=== PATIENT | female | born 1970 ===

== ENCOUNTER 2018-07-09 09:57 | Emergency (ER) | payer OTHER ==
[2018-07-09 10:05] VITALS: O2SAT 98
--- NOTE | 2018-07-09 10:39 | C.PDOC ---
History Of Present Illness 48 Y/O FEMALE PRESENTS TO ED WITH C/O LEFT FLANK PAIN ASSOCIATED WITH DYSURIA AND URINARY FREQUENCY FOR 4 DAYS. PATIENT ADMITS TO SUBJECTIVE FEVER AND CHILLS. PATIENT DENIES HO KIDNEY STONES. NO OTHER PHYSICAL COMPLAINTS AT THIS TIME. EXAM MILD DIST NONTOXIC ABD NEG +L CVAT MILD BACK AROM WO DIFF REMAINDER NEG Time Seen by Provider: 07/09/18 10:20 Chief Complaint (Nursing): Abdominal Pain History Per: Patient History/Exam Limitations: no limitations Onset/Duration Of Symptoms: Days Current Symptoms Are (Timing): Still Present Associated Symptoms: Fever, Chills, Urinary Symptoms Past Medical History Reviewed: Historical Data, Nursing Documentation, Vital Signs Vital Signs: Last Vital Signs Temp 99.3 F 07/09/18 10:01 Pulse 106 H 07/09/18 10:01 Resp 19 07/09/18 10:01 BP 118/70 07/09/18 10:01 Pulse Ox 98 07/09/18 10:01 - Medical History PMH: Hypercholesterolemia Surgical History: No Surg Hx Family History: States: No Known Family Hx - Social History Hx Alcohol Use: No Hx Substance Use: No - Immunization History Hx Tetanus Toxoid Vaccination: No Hx Influenza Vaccination: No Hx Pneumococcal Vaccination: No Review Of Systems Constitutional: Positive for: Fever, Chills Gastrointestinal: Positive for: Other (Flank pain). Negative for: Nausea, Vomiting Genitourinary: Positive for: Dysuria, Frequency. Negative for: Vaginal Discharge, Vaginal Bleeding Skin: Negative for: Rash Physical Exam - Physical Exam Appears: Non-toxic, Other (In mild distress) Skin: Warm, Dry, No Rash Head: Atraumatic, Normacephalic Eye(s): bilateral: Normal Inspection Oral Mucosa: Moist Throat: Normal, No Erythema, No Exudate Neck: Normal ROM, Supple Cardiovascular: Rhythm Regular Respiratory: Normal Breath Sounds, No Rales, No Rhonchi, No Wheezing Gastrointestinal/Abdominal: Soft, No Tenderness, No Guarding, No Rebound Back: CVA Tenderness (mild left), No Decreased ROM, No Muscle Spasm Extremity: Normal ROM, No Pedal Edema, Capillary Refill (<2 seconds) Neurological/Psych: Oriented x3, Normal Speech, Normal Cognition ED Course And Treatment - Laboratory Results Result Diagrams: 07/09/18 11:10 07/09/18 11:10 O2 Sat by Pulse Oximetry: 98 (RA) Pulse Ox Interpretation: Normal Reevaluation Time: 12:56 Reassessment Condition: Improved Disposition Counseled Patient/Family Regarding: Studies Performed, Diagnosis, Need For Followup, Rx Given - Disposition Referrals: [facility] [Outside] [facility] [Outside] Disposition: HOME/ ROUTINE Disposition Time: 12:56 Condition: IMPROVED Prescriptions: Ibuprofen [Motrin] 600 mg PO Q6 #30 tab levoFLOXacin [Levaquin] 500 mg PO DAILY #14 tab Ondansetron [Zofran Odt] 4 mg PO TID PRN #9 odt PRN Reason: Nausea/Vomiting Phenazopyridine HCl [Pyridium] 200 mg PO BID #6 tablet Instructions: Kidney Infection (DC) Forms: [employer] (Faroese), Work Excuse Print Language: KITTITIAN - Clinical Impression Clinical Impression: Pyelonephritis - Scribe Statement The provider has reviewed the documentation as recorded by the Vandana Horton All medical record entries made by the Miladysibtremaine were at my direction and personally dictated by me. I have reviewed the chart and agree that the record accurately reflects my personal performance of the history, physical exam, medical decision making, and the department course for this patient. I have also personally directed, reviewed, and agree with the discharge instructions and disposition.
[2018-07-09] MEDS ORDERED: Sodium Chloride 0.9% 1,000 ML IV STA (10:40)
[2018-07-09] MEDS ORDERED: SODIUM CHLORIDE 0.9% IV STA (10:40)
[2018-07-09] MEDS ORDERED: LIDOCAINE IV STA (10:40)
[2018-07-09 10:58] LABS: SQUAMOUS EPITHIAL 3 /hpf (0-5); URINE BACTERIA FEW (<OCC); URINE BILIRUBIN NEGATIVE (NEGATIVE); URINE BLOOD 1+ (NEGATIVE); URINE CLARITY Hazy (Clear); URINE COLOR Amber (YELLOW); URINE GLUCOSE (UA) NORMAL (Normal); URINE LEUKOCYTE ESTERASE 3+ Leu/uL (Negative); URINE PROTEIN 2+ mg/dL (NEGATIVE); WBC CLUMPS MOD /hpf
[2018-07-09] MEDS ORDERED: SODIUM CHLORIDE 0.9% IVPB ONE (11:00)
[2018-07-09] MEDS ORDERED: LIDOCAINE IVPB ONE (11:00)
[2018-07-09] MEDS ORDERED: cefTRIAXone IV 1 gm in Dextros 50 ML IV STA (11:04)
[2018-07-09] MEDS ORDERED: cefTRIAXone 1 gm 1 GM/100 ML BAG IVPB ONE (11:16)
[2018-07-09 11:18] LABS: BASO % 0.1 % (0.0-2.0); HEMOGLOBIN 11.6 g/dL (11.0-16.0); LYMPH # 0.3 K/uL (1.0-4.3); LYMPH % 2.9 % (20.0-40.0); MEAN CELL VOLUME 88.2 fL (81.0-99.0); MEAN CORPUSCULAR HEMOGLOBIN 30.7 pg (27.0-31.0); MEAN CORPUSCULAR HGB CONC 34.8 g/dL (33.0-37.0); MEAN PLATELET VOLUME 8.5 fL (7.2-11.7); MONO # 0.7 K/uL (0.0-0.8); MONO % 6.1 % (0.0-10.0); NEUT # 10.2 K/uL (1.8-7.0); NEUT % 90.9 % (50.0-75.0); PLATELET COUNT 164 K/uL (130-400); RBC 3.79 Mil/uL (3.80-5.20); RED CELL DISTRIBUTION WIDTH 13.3 % (11.5-14.5); WHITE BLOOD COUNT 11.3 K/uL (4.8-10.8)
[2018-07-09 11:27] LABS: BLOOD UREA NITROGEN 13 mg/dL (7-17); CALCIUM 8.7 mg/dl (8.6-10.4); GFR NON-AFRICAN AMERICAN > 60
[2018-07-09 12:36] LABS: BANDS 5 % (0-2); NEUTROPHIL 91 % (50-75); TOTAL CELLS COUNTED 100
[2018-07-09 12:37] LABS: LYMPHOCYTE 1 % (20-40); MONOCYTE 3 % (0-10)
[2018-07-09 12:38] LABS: PLATELET ESTIMATE NORMAL (NORMAL)
[2018-07-09 12:40] VITALS: BP 91/49; PULSE 82; RESP 14; TEMP 101.5
--- NOTE | 2018-07-09 12:42 | CT ---
Date of service: 07/09/2018 PROCEDURE: CT Abdomen and Pelvis without intravenous contrast HISTORY: L FLANK PAIN COMPARISON: None. TECHNIQUE: Axial and reformatted coronal and sagittal CT images of the abdomen and pelvis were obtained without IV or oral contrast administration. Contrast dose: 0 Radiation dose: Total exam DLP = 386.85 mGy-cm. This CT exam was performed using one or more of the following dose reduction techniques: Automated exposure control, adjustment of the mA and/or kV according to patient size, and/or use of iterative reconstruction technique. FINDINGS: LOWER THORAX: Unremarkable. LIVER: Mild hepatomegaly and hepatic steatosis are noted.. No gross lesion or ductal dilatation. GALLBLADDER AND BILE DUCTS: Unremarkable. PANCREAS: Unremarkable. No gross lesion or ductal dilatation. SPLEEN: Unremarkable. ADRENALS: Unremarkable. No mass. KIDNEYS AND URETERS: There is mild left hydronephrosis and hydroureter without evidence of obstructing calculus. Mild perinephric stranding and fat stranding around the left ureter are noted. The differential consideration includes recently passed stone from the left kidney. Other differential consideration includes infectious process and UTI. There is 2 millimeter nonobstructing calculus at the upper pole of the left kidney. The right kidney is grossly unremarkable. VASCULATURE: Unremarkable. No aortic aneurysm. No aortic atherosclerotic calcification or mural plaque present. BOWEL: Unremarkable. No obstruction. No gross mural thickening. APPENDIX: No evidence of acute appendicitis. PERITONEUM: Unremarkable. No free fluid. No free air. LYMPH NODES: Unremarkable. No enlarged lymph nodes. BLADDER: Mild urinary bladder wall thickening. REPRODUCTIVE: The uterus is mildly enlarged. BONES: No acute fracture. OTHER FINDINGS: None. IMPRESSION: Mild left hydronephrosis and hydroureter without evidence of obstructing stone. The possibility of recent passed stone versus infectious process should be considered. Mild urinary bladder wall thickening suspicious for cystitis. Otherwise no evidence of acute pathology in the abdomen and pelvis.
== END 2018-07-09 13:07 | disposition home or self-care (01) ==
LOC: C.ER 09:57
DX: N12 Tubulo-interstitial nephritis, not specified as acute or chronic (principal)
CPT/HCPCS: 74176; 80048; 81001; 85025; 87086; 87181; 96365; 96375; 99285; J0696; J1885; J2001; J2405; J7030